=== PATIENT | male | born 1985 | race Caucasian/White ===

== ENCOUNTER → 2016-12-19 | Emergency (ER) | payer OTHER ==
[~2016-12-19] VITALS: Ht 175.3 cm; Wt 65.8 kg
[~2016-12-19] MED LIST: HALOPERIDOL 1 MG TABLET ONE; HALOPERIDOL 1 MG TABLET PO ONE; diphenhydrAMINE HCL 25 MG CAPSULE ONE; diphenhydrAMINE HCL ELIX 25 MG/10 ML UDC PO ONE
--- NOTE | 2016-12-19 04:10 | NUR ---
PT PRESENTED TO THE ER WITH A C/O HEARING VOICES, SI AND HI. PT STATED THAT THE VOICES ARE TELLING HIM TO HURT HIMSELF AND OTHERS. PT STATED THAT HE HAS A PLAN TO CUT THE VEIN IN HIS NECK AND THIGH. PT APPEARS TO BE RESTING COMFORTABLY. PT REC'D 2 WARM BLANKETS. WILL CONTINUE TO MONITOR THE PT.
--- NOTE | 2016-12-19 04:40 | NUR ---
DIRECTOR OF NURSING SELENA PT AND URINE SAMPLE OBTAINED.
[2016-12-19 04:49] LABS: BASOPHILS % (AUTO) 0.2 % (0.0-2.0); HEMATOCRIT 42 % (39-51); HEMOGLOBIN 14.4 g/dL (13.5-17.5); LYMPHOCYTES # (AUTO) 0.8 /CMM (0.8-4.8); LYMPHOCYTES % (AUTO) 8.2 % (20.0-44.0); MEAN CORPUSCULAR HEMOGLOBIN 34 PG (26.0-33.0); MEAN CORPUSCULAR HGB CONC 34 g/dl (31.0-36.0); MEAN CORPUSCULAR VOLUME 98 fL (80-96); MONOCYTES # (AUTO) 0.6 /CMM (0.1-1.30); MONOCYTES % (AUTO) 5.7 % (2.0-12.0); NEUTROPHILS # (AUTO) 8.8 /CMM (1.8-8.9); NEUTROPHILS % (AUTO) 85.9 % (43.0-81.0); PLATELET COUNT (AUTO) 235 /CMM (150-450); RDW COEFFICIENT OF VARIATION 14.2 (11.5-15.0); RED BLOOD CELL COUNT(AUTO) 4.28 MIL/uL (4.5-6.0); WHITE BLOOD COUNT (AUTO) 10.3 K/uL (4.3-11.0)
[2016-12-19 04:51] LABS: APPEARANCE,URINE CLEAR (CLEAR); BILIRUBIN,URINE NEGATIVE (NEGATIVE); BLOOD, URINE NEGATIVE Ery/uL (NEGATIVE); COLOR,URINE YELLOW (YELLOW); KETONES,URINE 1+ (NEGATIVE); LEUKOCYTE ESTERASE ,URINE NEGATIVE (NEGATIVE); NITRITE, URINE NEGATIVE (NEGATIVE); PROTEIN,URINE 1+ mg/dl (NEGATIVE); UGLUCOSE NEGATIVE (NEGATIVE)
[2016-12-19 04:58] LABS: ADD URINE CULTURE NO; BACTERIA,URINE None seen /HPF (None Seen); RBC,URINE 0-2 /HPF (0-2); SQUAMOUS EPITHELIAL CELL,UR Few /HPF (None Seen); WBC,URINE 0-2 /HPF (0-3)
[2016-12-19 04:59] LABS: MUCUS,URINE Few /LPF (None Seen)
[2016-12-19 05:01] LABS: CALCIUM, SERUM 9.2 mg/dL (8.5-10.1); CARBON DIOXIDE 28 mmol/L (21-32); CHLORIDE 103 mmol/L (98-107); CREATININE 0.9 mg/dL (0.6-1.3); GFR 97 mL/min (>60); GLUCOSE 91 mg/dL (74-106); POTASSIUM 4.1 mmol/L (3.5-5.1); SODIUM SERUM 141 mmol/L (136-145); UREA NITROGEN, BLOOD 19 mg/dL (7-18)
[2016-12-19 05:05] LABS: ACETAMINOPHEN 0 ug/ml (10-30); ALANINE AMINOTRANSFERASE 152 U/L (12-78); ALBUMIN 4.1 g/dL (3.4-5.0); ALCOHOL, BLOOD < 3 mg/dL (0-0); ALKALINE PHOSPHATASE 84 U/L (46-116); ASPARTATE AMINOTRANSFERASE 76 U/L (15-37); BILIRUBIN,DIRECT 0.2 mg/dL (0.0-0.2); BILIRUBIN,TOTAL 0.7 mg/dL (0.2-1.0); PHENCYCLIDINE SCREEN,URINE NEGATIVE (NEGATIVE); TOTAL PROTEIN, SERUM 7.5 g/dL (6.4-8.2)
[2016-12-19 05:07] LABS: CANNABINOID, URINE POSITIVE (NEGATIVE)
--- NOTE | 2016-12-19 06:30 | NUR ---
PT REC'D MEDICATION ORDERED. NOT ENOUGH HALDOL 1MG PO IN PYXIS. MD AWARE AND OK'D GIVING PT 4MG.
--- NOTE | 2016-12-19 07:15 | NUR ---
REPORT GIVEN TO QUEENIE DIANE FOR PABLO.
--- NOTE | 2016-12-19 07:18 | NUR ---
ASSUME PT CARE. SLEEPING IN BED. ON MONITOR W/ STABLE VITALS. EASILY AROUSABLE. WILL CONTINUE TO MONITOR.
--- NOTE | 2016-12-19 10:33 | NUR ---
FOOD ORDERED PER
[2016-12-19 11:10] VITALS: BP 122/68
--- NOTE | 2016-12-19 11:22 | NUR ---
OK TO BE D/C PER DR MACKAY SINCE PATIENT IS NOT FEELING SUICIDAL NOW AND JUST WANTS VOLUNTARY ADMISSION AT [facility]
--- NOTE | 2016-12-19 11:22 | NUR ---
CALLED [facility] TO FOLLOW UP ON BED, SPOKE WITH LEN, SHE TOLD ME THERE ARE NO BEDS AVAILABLE RIGHT NOW BUT THEY ARE HAVING A FEW DISCHARGES LATER TODAY AND HE MIGHT BE ABLE TO GET IN, SHE TOLD ME TO FAX PT INFO TO [phone]
--- NOTE | 2016-12-19 11:25 | NUR ---
D/C TO WR TO WAIT FOR A BED AT [facility] FOR VOLUNTARY ADMISSION
== END | disposition hospice, home (50) ==
LOC: ER 03:54
DX: F29 Unspecified psychosis not due to a substance or known physiological condition (principal); F19.10 Other psychoactive substance abuse, uncomplicated; R74.0 Nonspecific elevation of levels of transaminase and lactic acid dehydrogenase [LDH]; F31.9 Bipolar disorder, unspecified; F20.9 Schizophrenia, unspecified; Z98.890 Other specified postprocedural states
CPT/HCPCS: 36415; 80048; 80076; 80305; 81001; 85025; 99284; A4606; G0480 ×2; Q0163; Z7610; 81000-TC; G6039-TC